=== PATIENT | female | born 1985 | race Caucasian/White ===

== ENCOUNTER 2023-03-26 12:13 | Emergency (ER) | payer BC, OTHER ==
[2023-03-26 14:11] LABS: Bilirubin Neg (Negative); Blood, Urine Negative (Negative); Clarity Clear (Clear); Glucose, Urine (Dipstick) Normal (Negative); Ketone, Urine Negative (Negative); Leukocyte Negative (Negative); Nitrite Negative (Negative); Protein, Urine (Dipstick) Negative (Neg-Trace); Specific Gravity, Urine 1.015 (1.005-1.030); Urobilinogen Normal mg/dL (Less than 2)
[2023-03-26 14:12] LABS: #Eosinphils 0.1 10x3/uL (0.0-0.5); #Monocytes 0.9 10x3/uL (0.0-1.1); %Basophils 0.5 % (0.0-2.0); %Eosinophils 1.2 % (0.0-6.0); %Lymphocytes 28.9 % (18.0-47.0); %Neutrophils 58.2 % (40.0-75.0); Hematocrit 33.5 % (34.9-44.5); Hemoglobin 11.1 g/dL (12.0-15.5); Mean Corpuscular HGB CONC 33.1 g/dL (32.0-36.0); Mean Corpuscular Hemoglobin 31.4 pg (27.0-33.0); Mean Corpuscular Volume 94.6 fl (81.6-98.3); Mean Platelet Volume 9.6 fl (7.4-10.4); Platelet Count 325 10x3/uL (150-450); RBC Distribution Width 13.6 % (11.5-14.5); Red Blood Cell (RBC) Count 3.54 10x6/uL (3.90-5.03); White Blood Cell (WBC) Count 8.5 10x3/uL (3.5-10.5)
[2023-03-26 14:29] LABS: ALT (SGPT) 22 U/L (8-55); AST (SGOT) 17 U/L (5-34); Albumin 3.9 g/dL (3.5-5.0); Alkaline Phosphatase 38 U/L (40-110); Anion Gap 13 mmol/L (10-20); BUN (Urea Nitrogen) 12 mg/dL (7.0-18.7); Bilirubin, Total 0.3 mg/dL (0.2-1.2); Calc. Creatinine Clearance 0 mL/min (70-130); Calcium 9.1 mg/dL (7.8-10.44); Carbon Dioxide 22 mmol/L (22-29); Chloride 105 mmol/L (98-107); Estimated GFR 103; Globulin 2.3 g/dL (2.4-3.5); Glucose 88 mg/dL (70-105); Potassium 3.8 mmol/L (3.5-5.1); Protein, Total 6.2 g/dL (6.0-8.3); Sodium 136 mmol/L (136-145)
[2023-03-26 15:29] LABS: Bacteria/HPF 2+ HPF (None Seen); CAUTI Indications for Culture Pelvic or flank pain; RBC/HPF 0-3 HPF (0-3); Squamous Epithelial 0-3 HPF (0-3); WBC/HPF 0-3 HPF (0-3)
[2023-03-26 15:31] LABS: Urine Culture Reflex No No
[2023-03-27 14:45] LABS: Chlamydia by PCR, Vaginal Swab Not Detected (NotDetected); GC by PCR, Vaginal Swab Not Detected (NotDetected)
== END 2023-03-26 16:05 | disposition home or self-care (01) ==
LOC: CSHERS 12:13
DX: O99.891 Other specified diseases and conditions complicating pregnancy (principal); R10.2 Pelvic and perineal pain; Z3A.01 Less than 8 weeks gestation of pregnancy
CPT/HCPCS: 36415; 76801; 80053; 81001; 84702; 85025; 86850; 86900; 86901; 87480; 87491; 87510; 87591; 87660

== ENCOUNTER 2023-04-16 17:29 | Emergency (ER) | payer OTHER ==
[2023-04-16 18:29] LABS: #Eosinphils 0.1 10x3/uL (0.0-0.5); #Monocytes 0.7 10x3/uL (0.0-1.1); #Neutrophils 5.9 10x3/uL (1.5-8.4); %Basophils 0.4 % (0.0-2.0); %Eosinophils 1.3 % (0.0-6.0); %Lymphocytes 26.9 % (18.0-47.0); %Monocytes 7.3 % (0.0-10.0); %Neutrophils 63.8 % (40.0-75.0); Hematocrit 34.3 % (34.9-44.5); Hemoglobin 11.5 g/dL (12.0-15.5); Mean Corpuscular HGB CONC 33.5 g/dL (32.0-36.0); Mean Corpuscular Hemoglobin 31.5 pg (27.0-33.0); Platelet Count 342 10x3/uL (150-450); RBC Distribution Width 13.1 % (11.5-14.5); Red Blood Cell (RBC) Count 3.65 10x6/uL (3.90-5.03); White Blood Cell (WBC) Count 9.3 10x3/uL (3.5-10.5)
[2023-04-16 18:42] LABS: ALT (SGPT) 12 U/L (8-55); AST (SGOT) 14 U/L (5-34); Alkaline Phosphatase 39 U/L (40-110); Anion Gap 10 mmol/L (10-20); BUN (Urea Nitrogen) 7 mg/dL (7.0-18.7); Bilirubin, Total 0.3 mg/dL (0.2-1.2); Calc. Creatinine Clearance 0 mL/min (70-130); Calcium 8.9 mg/dL (7.8-10.44); Carbon Dioxide 23 mmol/L (22-29); Chloride 108 mmol/L (98-107); Estimated GFR 108; Globulin 2.5 g/dL (2.4-3.5); Glucose 152 mg/dL (70-105); Lipase 19 U/L (8-78); Potassium 3.7 mmol/L (3.5-5.1); Protein, Total 6.5 g/dL (6.0-8.3); Sodium 137 mmol/L (136-145)
[2023-04-16 19:18] LABS: Bilirubin Neg (Negative); Blood, Urine 250 (Negative); Clarity Clear (Clear); Glucose, Urine (Dipstick) Normal (Negative); Ketone, Urine Negative (Negative); Leukocyte Negative (Negative); Nitrite Negative (Negative); Protein, Urine (Dipstick) 15 mg/dl (Neg-Trace); Urobilinogen Normal mg/dL (Less than 2)
[2023-04-16 19:43] LABS: Bacteria/HPF 1+ HPF (None Seen); CAUTI Indications for Culture Pregnancy; RBC/HPF 21-50 HPF (0-3); Squamous Epithelial 0-3 HPF (0-3); WBC/HPF 0-3 HPF (0-3)
[2023-04-16 19:44] LABS: Mucous/LPF Rare LPF (<2+)
[2023-04-16 19:46] LABS: Urine Culture Reflex Yes Yes
[2023-04-16] MEDS ORDERED: HYDROcodone/Acetaminophen 10/325 mg Tablet ONE (20:33)
[2023-04-16] MEDS ORDERED: Ketorolac Tromethamine 30 MG (1 mL) VIAL ONE (20:33)
[2023-04-17 02:21] LABS: Chlam.trachomatis by PCR,Urine Not Detected (NotDetected); GC N.gonorrhoeae PCR,UrineVOID Not Detected (NotDetected)
== END 2023-04-16 21:40 | disposition home or self-care (01) ==
LOC: CSHERS 17:29
DX: O03.4 Incomplete spontaneous abortion without complication (principal)
CPT/HCPCS: 36415; 76817; 80053; 81001; 83690; 84702; 85025; 86850; 86900; 86901; 87086; 87480; 87491; 87510; 87591; 87660; 88305; 90384; 96372; J1885

== ENCOUNTER 2024-01-31 18:44 | Emergency (ER) | payer OTHER ==
[2024-01-31] MEDS ORDERED: methylPREDNISolone Sod Succ/PF 125 MG/2 ML VIAL ONE (19:18)
[2024-01-31] MEDS ORDERED: Ketorolac Tromethamine 30 MG (1 mL) VIAL ONE (19:18)
== END 2024-01-31 21:15 | disposition home or self-care (01) ==
LOC: CSHERS 18:44
DX: J02.9 Acute pharyngitis, unspecified (principal); G43.909 Migraine, unspecified, not intractable, without status migrainosus
CPT/HCPCS: 87081; 87428; 87430; 96372; 99283; J1885; J2919

== ENCOUNTER 2024-03-20 15:46 | Emergency (ER) | payer OTHER ==
[2024-03-20] MEDS ORDERED: Ketorolac Tromethamine 30 MG (1 mL) VIAL ONE (17:16)
[2024-03-20 18:12] LABS: Bilirubin Neg (Negative); Blood, Urine 10 (Negative); Clarity Slightly Cloudy (Clear); Glucose, Urine (Dipstick) Normal (Negative); Ketone, Urine Negative (Negative); Leukocyte 25 (Negative); Nitrite Negative (Negative); Protein, Urine (Dipstick) 15 mg/dl (Neg-Trace); Specific Gravity, Urine 1.015 (1.005-1.030); Urobilinogen Normal mg/dL (Less than 2)
[2024-03-20 18:15] LABS: Pregnancy Test - Urine (BHCG) Negative (Negative)
[2024-03-20 18:16] LABS: Pregu Control Background? CLEAR/WHITE (CLR/WHITE); Pregu Control Bar Appear? YES (CONTROL BAR); Specific Gravity 1.015 (1.002-1.036)
[2024-03-20 18:45] LABS: CAUTI Indications for Culture Pelvic or flank pain; RBC/HPF 0-3 HPF (0-3)
[2024-03-20 18:47] LABS: Bacteria/HPF 2+ HPF (None Seen)
[2024-03-20 18:48] LABS: Mucous/LPF 3+ LPF (<2+)
[2024-03-20 18:50] LABS: Urine Culture Reflex No No
[2024-03-20] MEDS ORDERED: Cyclobenzaprine 10 MG TAB ONE (19:03)
[2024-03-20] MEDS ORDERED: HYDROcodone/Acetaminophen 5/325 mg Tablet ONE (19:03)
== END 2024-03-20 19:41 | disposition home or self-care (01) ==
LOC: CSHERS 15:46
DX: S39.012A Strain of muscle, fascia and tendon of lower back, initial encounter (principal); X50.0XXA Overexertion from strenuous movement or load, initial encounter
CPT/HCPCS: 72131; 81001; 81025; 96372; J1885

== ENCOUNTER 2024-04-16 22:47 | Emergency (ER) | payer OTHER | END 2024-04-16 23:31 | disposition home or self-care (01) | LOC: CSHERS 22:47 | DX: H57.89 Other specified disorders of eye and adnexa (principal) | CPT/HCPCS: 99283 ==